=== PATIENT | male | born 2005 | race Caucasian/White ===

== ENCOUNTER 2023-12-30 20:58 | Emergency (ER) | payer SELFPAY ==
[~2023-12-30] VITALS: Ht 177.8 cm; Wt 99.8 kg
[2023-12-30 21:21] VITALS: BP 125/86; TEMP 98.2
[2023-12-30] MEDS: PREDNISONE 20MG TABLET PO ONE (23:19)
[2023-12-30 23:47] VITALS: PULSE 99; RESP 20; O2SAT 96
[2023-12-30] MEDS: ALBUTEROL (0.083%) 2.5MG/3ML NEB HHN ONE (23:47)
[2023-12-31] MEDS ORDERED: ALBU18HF2 IH (00:19)
[2023-12-31] MEDS ORDERED: IBUP-2029 MT (00:19)
[2023-12-31] MEDS ORDERED: AZIT250T12 MT (00:19)
[2023-12-31] MEDS ORDERED: P50 MT (00:19)
== END 2023-12-31 00:29 | disposition home or self-care (01) ==
LOC: ER 20:58
DX: J02.9 Acute pharyngitis, unspecified (principal); R05.9 Cough, unspecified
CPT/HCPCS: 71045; 94640; 99284; 87430; 87070; J7512; Z7610 ×3